=== PATIENT | female | born 1970 | race African-American/Black ===

== ENCOUNTER 2018-10-21 21:20 | Emergency (ER) | payer OTHER ==
[~2018-10-21] VITALS: Ht 152.4 cm; Wt 98.9 kg
[2018-10-21 23:13] VITALS: BP 136/89
== END 2018-10-21 23:13 | disposition home or self-care (01) ==
LOC: ED 21:20
DX: M79.661 Pain in right lower leg (principal); D25.9 Leiomyoma of uterus, unspecified

== ENCOUNTER 2019-04-13 09:53 | Emergency (ER) | payer OTHER ==
[~2019-04-13] VITALS: Ht 152.4 cm; Wt 99.3 kg
[2019-04-13 10:12] VITALS: Ht 152.4 cm; Wt 99.3 kg
[2019-04-13 12:16] VITALS: BP 111/44
== END 2019-04-13 12:16 | disposition home or self-care (01) ==
LOC: ED 09:53
DX: M62.830 Muscle spasm of back (principal); G47.00 Insomnia, unspecified; K29.70 Gastritis, unspecified, without bleeding; Z90.49 Acquired absence of other specified parts of digestive tract; Z90.710 Acquired absence of both cervix and uterus; Z98.890 Other specified postprocedural states
CPT/HCPCS: 20552; J2001